=== PATIENT | female | born 1940 | race Caucasian/White ===

== ENCOUNTER 2018-06-21 13:54 | Outpatient (CLI) | payer OTHER, SELFPAY ==
[2018-06-21] VITALS (13 sets, daily range): BP systolic 104–134; BP diastolic 53–79; PULSE 58–67; RESP 14–20; TEMP 35.8; O2SAT 95–100
--- NOTE | 2018-06-21 13:56 | DI.RAD.S_ITS ---
PROCEDURE: PAIN L/S TRANSFORAMINAL INJECT INDICATIONS: Radiculopathy, lumbosacral region FINDINGS: Fluoroscopic spot filming was performed to verify placement of spinal needles at the right L4-5 level(s), as labeled on the films. Appropriate location(s) of the needle tip(s) was confirmed by injection of iodinated contrast. IMPRESSION: Intraoperative imaging for documentation of needle placement and injection at the right L4-5 level Dictated by: Cortez Cerrato M.D. on 06/21/2018 at 15:31 Approved by: Cortez Cerrato M.D. on 06/21/2018 at 15:32
[2018-06-21] MEDS: IOPAMIDOL 15 ML VIAL 3 ML INJ (15:06)
[2018-06-21] MEDS: methylPREDNISolone acetate 80 MG/ML VIAL INJ (15:06)
[2018-06-21] MEDS: DEXAMETHASONE 10 MG/ML VIAL 20 MG INJ (15:06)
[2018-06-21] MEDS: MIDAZOLAM 5 MG/5 ML VIAL IV (15:06)
--- NOTE | 2018-06-21 15:12 | P.PCN_ITS ---
Procedures Date/Time Date of procedure: 06/21/18 Time of procedure: 15:09 General Procedure description: PREOP DIAGNOSIS 1. FORMAINAL STENOSIS WITH LE SYMPTOMS POST OP DIAGNOSIS 1. FORMAINAL STENOSIS WITH LE SYMPTOMS PROCEDURES 1. 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 An informed consent document was signed by the patient, witnessed by a nurse, and placed in the patient's chart. Additionally, other treatment options including medications, modalities, and physical therapy were reviewed with the patient. After review of previous anaesthesic history and IV conscious sedation the patient was deemed safe to proceed with todays procedure with IV conscious sedation as ASA class II designation. Safety time-out was performed to confirm patient ID, procedure to be performed and site of procedure. IV sedation was accomplished with a combination of 4mg of Versed was administered by the RN after DO order, titrated to patient comfort during the course of the procedure while the patient remained responsive to all verbal commands In the prone position following sterile prep and drape of the lumbar region, the Right L4/5 posterior neuroforamen was identified fluoroscopically. The skin was anesthetized via a 25-gauge 1.5-inch needle with 1% lidocaine solution. At this point, a 25-gauge 3.5-inch spinal needle was atraumatically introduced and advanced under fluoroscopic guidance through the posterior Right L4/5 neuroforamen to approximately the anterior aspect of the canal. Depth was confirmed on lateral view. Following negative aspiration, injection of approximately 1.5 cc of Isovue 200 under live fluoroscopy in the AP view confirmed excellent flow along the nerve root, into the epidural space without vascular or intrathecal uptake observed Radiological data, including multiple fluoroscopic views of the lumbosacral spine, reveal a spinal needle at the right L4/5 posterior neuroforamen. Subsequent views show flow of contrast material flowing superiorly and inferiorly along the nerve root confirming epidural flow. Subsequently, a test dose of 1.5 cc of 1% lidocaine solution was administered and patient was observed for two minutes for signs or symptoms of complications , including abdominal pain, shortness of breath, bilateral upper or lower extremity weakness, nausea and vomiting, prior to steroid injection. At this point, a total of 3 cc or 20 mg of dexamethasone and 80mg Depo Medrol was injected without incident. The procedure tolerated the procedure well without signs or symptoms of complications prior to transfer to the recovery area continued monitoring without incident.The patient was then transferred to the recovery area where they were observed for an appropriate time after the injection. The patient reported a VAS score of 7 prior to the procedure and a post- procedure VAS of 0. Total Fluoroscopy Time: 20.9 seconds Total Conscious Sedation Time: 24min POST OP INSTRUCTIONS The patient was provided a Pain Log to continue to record their response to the target-specific procedure prior to follow-up visit with their referring physician. Additionally, specific post-injection care instructions and a contact number to our office were provided if concerns arise regarding possible complications associated with the procedure are suspected. Pasha Hernandez DO Complications: none
--- NOTE | 2018-06-22 17:44 | PC.NURSE ---
Called for follow up post steroid injection. Pt reports she is doing fine. She thought maybe she had too much sedation because she floated through yesterday but today she has been more active and denies any pain.
== END 2018-06-21 16:24 ==
PROVIDERS: PCP Family Medicine; Visit Provider Physical Medicine & Rehabilitation
DX: M54.17 Radiculopathy, lumbosacral region (principal); M51.36 Other intervertebral disc degeneration, lumbar region
CPT/HCPCS: 64483; 99152; J1040; J1100; J2250